=== PATIENT | male | born 1945 | race Caucasian/White ===

== ENCOUNTER → 2016-06-28 | Outpatient (CLI) | payer OTHER, MEDICARE ==
--- NOTE | 2016-06-28 09:59 | MR ---
MRI of the Brain (Without Contrast) at 0830 hours History: Paresthesias. Numbness left side.. Technique: MRI was performed of the brain using a 1.5 Cally MRI system. Sagittal and axial images wer e performed with standard imaging sequences. Findings: The ventricles, cisterns, and sulci are normal for the patient's age. No evidence for an e xtra-axial fluid collection. No evidence for mass effect or midline shift. Minimal periventricular wh ite matter change is seen which can be seen with aging and minimal small vessel ischemic disease. No evidence for intracranial mass, hemorrhage, or infarct. Diffusion-weighted images are normal. Posteri or fossa appears normal with a normal appearance to the craniocervical junction. Pituitary gland is n ormal in size. The major caliber vessels visualized are normal in appearance. Paranasal sinuses and m astoid air cells are clear. Impression: Normal MRI of the brain without contrast for age.
== END ==
LOC: FIMAGING 07:45
PROVIDERS: ATTEND Internal Medicine
DX: R20.2 Paresthesia of skin (principal)

== ENCOUNTER → 2017-04-28 | Outpatient (CLI) | payer OTHER, MEDICARE | LOC: FIMAGING 08:34 | PROVIDERS: ATTEND Internal Medicine | DX: M25.562 Pain in left knee (principal); M23.204 Derangement of unspecified medial meniscus due to old tear or injury, left knee; M76.892 Other specified enthesopathies of left lower limb, excluding foot; M22.42 Chondromalacia patellae, left knee; R60.9 Edema, unspecified ==

== ENCOUNTER 2017-07-06 11:06 | Observation (INO) | payer OTHER, MEDICARE ==
[2017-07-06] MEDS ORDERED: ONDANSETRON 4 MG/2 ML VIAL ONE (11:54)
[2017-07-06] MEDS ORDERED: ONDANSETRON 4 MG/2 ML VIAL IVP ONE (11:58)
[2017-07-06 12:01] LABS: PLATELET COUNT 177 10^3/uL (150-400)
--- NOTE | 2017-07-06 12:03 | CPEKG ---
Heart Rate: 52 RR Interval: 1154 P-R Interval: 168 QRSD Interval: 104 QT Interval: 452 QTC Interval: 421 P [place]: 82 QRS [place]: -21 T Wave [place]: 31 EKG Severity - ABNORMAL ECG - EKG Impression: SINUS RHYTHM EKG Impression: PROBABLE LEFT ATRIAL ABNORMALITY EKG Impression: INCOMPLETE RBBB AND LAFB EKG Impression: PROBABLE ANTEROSEPTAL INFARCT, OLD Electronically Signed By: Pineda Weathers 06-Jul-2017 12:08:57
--- NOTE | 2017-07-06 12:08 | EDPHY ---
H & P Time Seen by Provider: 07/06/17 11:18 HPI/ROS: CHIEF COMPLAINT: Neck pain HISTORY OF PRESENT ILLNESS: Patient presents with severe symptoms this morning. He had an episode 3 days ago which lasted 2 hr and resolved. He was at home and was doing some exercises for balance because of his left knee meniscus injury. Around 9:00 a.m. He had sudden onset of severe pain in his upper neck and bottom of his head which caused him to be lightheaded and have nausea and almost passed out. He started hyperventilating at tingling in his hands and his fingers. Symptoms lasted about half an hour and then got better. He describes also tingling in his left cheek during this episode but not on the right, and his describes slurred speech like he was"soft on the edges"with his speech which lasted for about 10 min. Currently does not have a headache. No visual symptoms. No trouble with balance or thought. REVIEW OF SYSTEMS: Eye: no change in vision ENT: no sore throat Cardiac: no chest pain or syncope Pulmonary: no cough or SOB Abdomen: no vomiting, diarrhea, abdominal pain Musculoskeletal: Upper neck and headache as described above, chronic left knee pain from meniscus injury unchanged Skin: no rash Neuro: HPI Constitutional: no fever : no urinary symptoms A comprehensive 10 point review of systems is otherwise negative aside from elements mentioned in the history of present illness. PAST MEDICAL HISTORY: Parathyroid and left knee meniscus Social history: No alcohol here with spouse General Appearance: Alert and conversant, cooperative. Eyes: No scleral icterus. Pupils equal reactive extraocular motion intact. ENT, Mouth: Normal mucous membranes. No tongue laceration or abrasion. Respiratory: Normal respiratory effort, breath sounds equal, lungs are clear to auscultation. Cardiovascular: Regular rate and rhythm. No carotid bruit. Gastrointestinal: Abdomen is soft and non tender. Neurological: Alert, face symmetric, normal motor and sensory in extremities. Strength 5/5 in deltoids, triceps, biceps, wrist extensor, intrinsics of both arms. [id number] normal bilaterally with no pronator drift. Speech is fluent. Face is intact to sensation with light touch in both sides of his cheeks. Skin: Warm and dry, no rashes. Musculoskeletal: No peripheral edema. No midline spinal tenderness. Psychiatric: Not agitated. Emergency Department course/MDM: Patient presents with multiple symptoms, differential broad and includes but not limited to spinal cord compression from disc, vascular dissection, subarachnoid, some type of stroke or intracranial bleed. CT imaging including vascular, labs. 1322: Normal head noncontrast and angiography per Dr. Selby. Results discussed, admission for TIA workup with the recommendation of Neurology consult discussed and consented. 1346: [place] for Mathew; will consider pursue MRI of the C-spine if TIA workup is negative. Smoking Status: Never smoked Constitutional: Initial Vital Signs Temperature (C) 36.3 C 07/06/17 11:08 Heart Rate 56 L 07/06/17 11:08 Respiratory Rate 16 07/06/17 11:08 Blood Pressure 134/69 H 07/06/17 11:08 O2 Sat (%) 100 07/06/17 11:08 O2 Delivery Mode Room Air Allergies/Adverse Reactions: prochlorperazine edisylate [From Compazine] Allergy (Verified 02/26/14 14:29) prochlorperazine maleate [From Compazine] Allergy (Verified 02/26/14 14:29) Home Medications: Medication Instructions Recorded Acid Improvement Auditor Complete (Equate) 1 tab PO BID PRN 07/06/17 Aspirin EC [Aspirin EC 81 mg (*)] 81 mg PO DAILY 07/06/17 Cholecalciferol Vit D3 [Vitamin D3 4,000 units PO DAILY 07/06/17 2000 units tab (OTC)] Fluticasone Nasal [Flonase Nasal 2 sprays NASAL DAILY 07/06/17 [place] (RX)] Ibuprofen [Motrin (*)] 200 mg PO Q6 PRN 07/06/17 LORazepam [Ativan (*)] 0.25 mg PO QID@06,08,1130,1630 07/06/17 Levothyroxine [Synthroid 75 mcg 75 mcg PO DAILY06 07/06/17 (*)] Multivitamins [Multivitamin (*)] 1 each PO DAILY 07/06/17 [place]-3 Fatty Acids [Fish Oil 1000 1,000 mg PO DAILY 07/06/17 mg (*)] Oxcarbazepine [Trileptal] 75 mg PO BID 07/06/17 Sodium Cl Nasal [[place] (*)] 1 spray [place] HS 07/06/17 Medical Decision Making - Diagnostics EKG Interpretation: 12-lead EKG interpreted by me; official reading is in trace master. My interpretation is sinus rhythm with incomplete right bundle branch and left anterior fascicular block, late anterior RS transition. Imaging Results: Imaging Impressions Head CT 07/06/17 12:13 Impression: Normal noncontrast CT of the brain. Results called to Dr. Pineda Weathers at the time of the interpretation. Head CTA 07/06/17 12:13 Impression: Negative CT angiography of the [place].. Neck CTA 07/06/17 12:13 Impression: Negative CT angiography of the neck.. Note: All stenoses are calculated using NASCET Criteria. Imaging: Discussed imaging studies w/ clinical training coordinator Radiologist, I viewed and interpreted images myself Differential Diagnosis: Differential considered including but not limited to spinal cord compression, cervical radiculopathy, TIA, subarachnoid, vascular dissection. Consult/Admit Bed Type: [facility] admit for TIA workup - Data Points Laboratory Results: Laboratory Results 07/06/17 11:50 07/06/17 11:50 07/06/17 07/06/17 07/06/17 11:50 11:50 11:50 WBC 6.67 10^3/uL 10^3/uL (3.80-9.50) RBC 5.02 10^6/uL 10^6/uL (4.40-6.38) Hgb 15.6 g/dL g/dL (13.7-17.5) Hct 44.9 % % (40.0-51.0) MCV 89.4 fL fL (81.5-99.8) MCH 31.1 pg pg (27.9-34.1) MCHC 34.7 g/dL g/dL (32.4-36.7) RDW 12.6 % % (11.5-15.2) Plt Count 177 10^3/uL 10^3/uL (150-400) MPV 9.9 fL fL (8.7-11.7) Neut % (Auto) 80.0 % H % (39.3-74.2) Lymph % (Auto) 10.9 % L % (15.0-45.0) [place] % (Auto) 7.6 % % (4.5-13.0) Eos % (Auto) 0.6 % % (0.6-7.6) Baso % (Auto) 0.6 % % (0.3-1.7) Nucleat RBC Rel Count 0.0 % % (0.0-0.2) Absolute Neuts (auto) 5.33 10^3/uL 10^3/uL (1.70-6.50) Absolute Lymphs (auto) 0.73 10^3/uL L 10^3/uL (1.00-3.00) Absolute Monos (auto) 0.51 10^3/uL 10^3/uL (0.30-0.80) Absolute Eos (auto) 0.04 10^3/uL 10^3/uL (0.03-0.40) Absolute Basos (auto) 0.04 10^3/uL 10^3/uL (0.02-0.10) Absolute Nucleated RBC 0.00 10^3/uL 10^3/uL (0-0.01) Immature Gran % 0.3 % % (0.0-1.1) Immature Gran # 0.02 10^3/uL 10^3/uL (0.00-0.10) PT 14.5 SEC SEC (12.0-15.0) INR 1.11 (0.83-1.16) Sodium 137 mEq/L mEq/L (135-145) Potassium 3.9 mEq/L mEq/L (3.5-5.2) Chloride 101 mEq/L mEq/L (97-110) Carbon Dioxide 27 mEq/l mEq/l (22-31) Anion Gap 9 mEq/L mEq/L (8-16) BUN 18 mg/dL mg/dL (7-23) Creatinine 1.1 mg/dL mg/dL (0.7-1.3) Estimated GFR > 60 Glucose 92 mg/dL mg/dL (70-100) Calcium 9.2 mg/dL mg/dL (8.5-10.4) Troponin I < 0.012 ng/mL ng/mL (0.000-0.034) Medications Given: Discontinued Medications Ondansetron HCl (Zofran) 4 mg IVP EDNOW ONE Stop: 07/06/17 11:59 Last Admin: 07/06/17 12:19 Dose: 4 mg Departure - Departure Disposition: [facility] Acute Clinical Impression: neck pain and headache Condition: Good
[2017-07-06 12:10] LABS: INR 1.11 (0.83-1.16); PROTIME(PATIENT) 14.5 SEC (12.0-15.0)
[2017-07-06] MEDS ORDERED: IOPAMIDOL (ISOVUE 370) 100 ML BTL IV ONE (12:24)
[2017-07-06] MEDS ORDERED: ONDANSETRON DISINTEGRATING 4 MG TAB PO PRN (14:01)
[2017-07-06] MEDS ORDERED: ONDANSETRON 4 MG/2 ML VIAL IVP PRN (14:01)
[2017-07-06] MEDS ORDERED: ACETAMINOPHEN 325 MG TAB PO PRN (14:01)
[2017-07-06] MEDS ORDERED: IBUPROFEN 200 MG TAB PO PRN (14:56)
[2017-07-06] MEDS ORDERED: [UNRECOGNIZED DRUG - OTHER] PO PRN (14:56)
--- NOTE | 2017-07-06 15:43 | GHP ---
[f rep st] HISTORY AND PHYSICAL DATE OF ADMISSION: 07/06/2017 HISTORY OF PRESENT ILLNESS: The patient is a pleasant 72-year-old gentleman with a history of anxiet y, hypothyroidism, hyperparathyroidism who presents with an episode of dizziness. It sounds like he had been doing some exercises for a meniscal tear in his knee. He was shaving this morning. He felt lightheaded and dizzy. He had tingling in both his hands and tingling on his cheek. His yocasta beyer what is possibly slurred speech saying "his words are softer around the edges." When I speak with the patient, his speech appears normal to who is at the bedside. The patient denies previous episodes of blacking out, but he did have similar episodes that were mild er in nature this week where he would be shaving. He would feel lightheaded, dizziness and tingling in his arms. Also with this episode today he had some occipital pain. He did not have visual distur bances. He does not have a headache. He did not have weakness in 1 hand or the other although he andrade d bilateral tingling. He notes he has been riding an exercise bike, but he is pretty much sitting upright. He has had no n ausea, vomiting, diarrhea. He is bradycardic at rest, but has never been evaluated for a pacer. He did have bradycardia on a Holter monitor after using atenolol. He also has a history of mitral valve prolapse. In the emergency department the patient is feeling fairly well. REVIEW OF SYSTEMS: A complete 10-point review of systems was conducted, negative except as noted in the HPI. PAST MEDICAL HISTORY: 1. Mitral valve prolapse. 2. Recent meniscal tear. 3. Hypercalcemia secondary to hyperparathyroidism status post parathyroidectomy. ALLERGIES: Prochlorperazine. HOME MEDICATIONS: 1. An acid tree sapper complete called Equate. It sounds like an [id number]-fcnpxev. 2. Fish oil. 3. Ibuprofen. 4. Aspirin. 5. Oxcarbazepine. 6. Levothyroxine. 7. Flonase. 8. Lorazepam 0.25 mg 4 times daily. 9. Sodium chloride. 10. Vitamin D3 and multivitamin. SOCIAL HISTORY: Retired from [employer]. Originally from [place]. Nonsmoker. Rare alcohol. FAMILY HISTORY: Father sounds like had obesity and heart disease. PHYSICAL EXAMINATION: VITAL SIGNS: Temperature 36.3, blood pressure 134/69, pulse 56, breathing 16 times a minute, 100% on room air. GENERAL: No acute distress. HEENT: Sclerae anicteric. Orophary nx clear. Mucous membranes moist. NECK: Supple. No lymphadenopathy or JVD. LUNGS: Clear to ausc ultation bilaterally. HEART: S1, S2. ABDOMEN: Soft, nontender, nondistended. LOWER EXTREMITIES: Without edema. Calves nontender. SKIN: Without rash. NEUROLOGIC: Exam is nonfocal. LABORATORY: CBC is normal. Troponin less than 0.012. Coags normal. White count 6.7, hematocrit 45 , platelets are 177,000. EKG interpreted by me shows sinus bradycardia at 52 with borderline left axis deviation, no ST or T-w ave changes. No prior for comparison. CT of the head and neck shows no evidence of vascular disease. Normal [place] of [place]. No evidence of carotid disease. Noncontrast head CT shows no acute bleed. Normal noncontrast CT of the brain. I discussed the case Dr. Pineda Weathers. ASSESSMENT/PLAN: A 72-year-old gentleman presents with some presyncopal symptoms as well as some tin gling and occipital pain and slurred speech. 1. Question transient ischemic attack. I do not think this represents a neurovascular event, given his absence of any significant vascular disease on CTA of head and neck. However, cannot rule out gi jeana his left-sided facial tingling and slurred speech. This does look somewhat lateralized to his [facility] brain, so will perform an MRI of his brain and an echocardiogram, lipid panel etc., complete the stroke workup. 2. Episodes of lightheadedness. I think this is concerning for possible bradycardic event versus va sovagal. I did push on his carotid bulbs bilaterally without presyncope or bradycardia. It is possi alina a carotid bulb hypersensitivity as these things have occurred while he is shaving. Will follow h im on a heart monitor overnight. 3. Anxiety. Continue his Ativan. 4. Hyperparathyroidism. His calcium is normal here today. 5. Disposition. Observation status. /[id number]/MODL
[2017-07-06] MEDS: LORazepam 0.5 MG TAB PO SCH (17:04)
[2017-07-06] MEDS ORDERED: SODIUM CL NASAL 45 ML BTL EACHNARE SCH (21:00)
[2017-07-06] MEDS ORDERED: OXCARBAZEPINE PO SCH (21:00)
[2017-07-07] MEDS: OXCARBAZEPINE PO SCH ×2 (00:05→09:39)
[2017-07-07 05:22] LABS: PLATELET COUNT 187 10^3/uL (150-400)
[2017-07-07] MEDS: LORazepam 0.5 MG TAB PO SCH ×2 (05:31→07:53)
[2017-07-07] MEDS ORDERED: LEVOTHYROXINE 75 MCG TAB PO SCH (06:00)
[2017-07-07 08:52] VITALS: BP 102/62; PULSE 65; RESP 13; TEMP 97.4; O2SAT 97
[2017-07-07] MEDS ORDERED: CHOLECALCIFEROL VIT D3 2,000 UNITS TAB/CAP PO SCH (09:00)
[2017-07-07] MEDS ORDERED: OMEGA-3 FATTY ACIDS 1,000 MG CAP PO SCH (09:00)
[2017-07-07] MEDS ORDERED: ASPIRIN EC 81 MG TAB PO SCH (09:00)
[2017-07-07] MEDS ORDERED: FLUTICASONE NASAL 120 SPRAYS/16 GM MDI NS SCH (09:00)
[2017-07-07] MEDS ORDERED: ASPIRIN 81 MG CHEWABLE TAB PO SCH (09:00)
[2017-07-07] MEDS ORDERED: MULTIVITAMINS 1 EACH TAB PO SCH (09:00)
--- NOTE | 2017-07-07 09:50 | GCON ---
[f rep st] CONSULTATION NEUROLOGIC CONSULTATION REFERRING PHYSICIAN: Leif Carmona MD HISTORY: The patient is a 72-year-old gentleman who I am asked to see in neurologic consultation reg arding some events over the last few days, involving pain in the neck and some paresthesias in the andrade nds, as well as perhaps some mild slurring of speech. The history is obtained from review of the [facility] records as well as discussions with the patient directly, who is a good historian, and his . He has a history starting Saturday of having some abnormal feelings that he says were often precip itated by some pain in his neck and even having some trouble holding his head up. He had a little bi t of similar phenomenon Saturday and then yesterday came to the hospital at the recommendation of Dr. Venkat gibson for assessment to do some more workup because of the ongoing symptoms to include the neck pain and the paresthesias he would temporarily experience in his hands. At times, it was almost as i f he was feeling that he might pass out but never did. His said he was leaning forward, had a h noé time lifting his head up 1 time. These other episodes were tending to occur when he was shaving. He has not had these specific symptoms before, but he has had problems with peripheral neuropathy o [place] the last year. He said it came on after he had parathyroid surgery. He describes a numbness in his distal lower extremities, which is nonpainful. He has also had acute pain in the left ear and we nt through evaluation with Dr. Goel in Neurology, and apparently was felt to have a neuralgia for which he has been given Epitol, and more recently ox carbamazepine. He is finding that a little hard to tolerate right now and is taking a small dosage. He was also seen by Dr. Coker for peripheral neuropathy and apparently EMG was performed showing some evidence of neuropathy, although I do not h ave that report. He had picked up on some tremulousness and perhaps some parkinsonism and referred t he to Dr. Goel the best I can understand and he felt he probably did not have Parkinson disease, b ut likely some central tremor or a relatively benign tremor that was evident. The patient has never had a classic resting tremor. Sometimes he is mildly tremulous in his hands. His does not feel that his voice has significantly changed, but he has always been a soft-spoken and deliberate speake r. He has not had major changes in his walking, but he does have a tendency to lean forward with his head and neck with a kyphotic posture. This was also seen with the physical therapist working with him today, but she did not pick up man on anything more specific either. Her initial reaction was the sa me as mine that he might appear little bit parkinsonian with a decreased facial expression and slowne ss of speech, but did not have other classic features evident on her examinations. In any case, since coming in the hospital he has been stable. He has some baseline mild bradycardia, but that apparently is not a new phenomenon and no specific arrhythmias have been seen so far. He h as not had recurrent symptoms since admission. He has undergone CT head showing nothing specific, CT angiogram of the head and neck without any sign ificant stenoses. Cervical spine MRI shows variable degrees of central and foraminal stenoses, with some of the most prominent change seen at the C4-5 level. There is also narrowing at C5-C6. C6-C7 h as central canal stenosis as well. No abnormal cord signal. He had brain MRI obtained which looks r elatively unremarkable. He had minimal white matter change. No significant atrophy. LABORATORY STUDIES: Have shown a normal cell count, INR, and chemistry looks good with LDL cholester ol of 75. FAMILY HISTORY: Noncontributory. SOCIAL HISTORY: He does not smoke and no alcohol abuse. He is retired from working at [employer] for many years. MEDICATIONS ON ADMISSION: Include vitamin D, lorazepam 0.25 mg 4 times a day, Flonase, Synthroid, ox carbazepine 75 mg twice a day, aspirin 81 mg daily, ibuprofen as needed. He has not received the oxc arbazepine during admission because it has not been available formulary. ALLERGIES: Prochlorperazine. REVIEW OF SYSTEMS: No recent weight loss or weight gain. No chest pain, palpitations, or shortness of breath. No fever, chills, nausea, vomiting, or diarrhea. The other 10-point review of systems completed and unremarkable except for that noted above. PHYSICAL EXAM: VITAL SIGNS: Blood pressure 102/62, pulse of 65 and has been typically in the 50s. Temperature of 36.3. Respirations 13. GENERAL: He is well developed, in no acute distress. NECK: Supple with no bruits or masses. He does have a tendency to a kyphotic posture in the upper spine. No significant pain with head movement. CARDIAC: Regular rate and rhythm. No murmur. NEUROLOGIC: He is awake, alert and attentive. He does have mild generalized bradykinesia and some decreased fa cial expression and speaks softly and deliberately, but I do not detect anything else more specific f rom a parkinsonism standpoint. I did think there might even be a little bit of cogwheeling in the formerly [facility] upper extremity. His pupils are 2 mm and reactive. Extraocular movements are intact. Normal fa cial sensation and strength. Palate elevates symmetrically. Tongue protrudes in the midline. His h earing is diminished bilateral because he is not wearing his hearing aids. The motor exam suggests a little bit of bradykinesia, but there is nothing asymmetric. No resting tremor. He has a minimal f ine postural tremor that is also evident on mmkghf-go-bgev and perhaps a little more on the right ana n the left. As mentioned above, there is a little bit of cogwheeling on testing the tone in the righ t upper extremity more than the left, and some of this seems to also reflect trouble relaxing the arm s when I am testing. Rapid alternating movements are not particularly slow or decreased in amplitude . The actual muscle power is fairly well preserved throughout. Sensation is intact in the upper ext remities, but some distal decrease in the lower extremities. He can ambulate independently and has r easonable arm swing, though his posture tends to be leaning forward. He does not shuffle his feet. Reflexes 2+ except for absent at the ankles. IMPRESSION: Overall, I do not think the patient probably has been experiencing transient ischemic at tack. Although that is in the differential consideration, the description sounds less like that and more in keeping with perhaps cervical spine disease causing some of the pain and paresthesias, and ev en possible vasovagal phenomena with some of these symptoms being predominantly when he is standing u p and shaving. The description does not sound like a vertebrobasilar syndrome very likely. His CT a ngiogram of the head and neck show no significant stenoses. He has an echocardiogram pending, which is also still reasonable. He has chronic bradycardia, but no specific evidence of arrhythmia or need for pacemaker at this point. I would suggest continuing to monitor his cardiac status to make sure he does not have any problems develop in that respect. Dr. Carmona had similar feelings. Interestingly, he does have a mild degree of parkinsonism, but quite nonspecific and a lot of this ma y simply be his baseline when it comes to his demeanor with facial expression and slow, soft, deliber ate speech, that his says isn't really dramatically different in her opinion. Even a kyphotic p osture itself is not very specific. This may reflect the cervical spine disease more than any neuro degenerative process, but this should also be monitored as is already being done through Dr. Chicho miramontes and Dr. Goel. He has a history of otalgia on the left, for which he is getting ox carbamazepine. He is also known to have peripheral neuropathy, which seems to be stable but could contribute to problems if that prog resses. This seems very nonspecific. At this point, I think he can continue on antiplatelet therapy. I do not think he needs statin thera py given the lack of clinical diagnosis of transient ischemic attack. He already has a very good LDL . I think it would be productive for him to go to follow up with Dr. Coker regarding some of the cervical spine disease and perhaps helping with the pain. He will continue to follow up with Dr. Lowell duran for neurologic issues and I will be available if any further questions arise. TOTAL UNIT TIME: 70 minutes. Copy requested to: MD Dr. Amando Shelton /[id number]/MODL
--- NOTE | 2017-07-07 10:46 | ECHO ---
[email or web address] [address] [address] Main: [phone] Fax: Transthoracic Echocardiogram Name: ASIA MELENDEZ MR#: [id number] Study Date: 07/07/2017 Study Time: 09:05 AM Date of : 1945 Age: 72 year(s) Height: 188 cm (74 in.) Weight: 79.83 kg (176 lb.) BSA: 2.06 m2 Gender: Male Examination: Echo Indication: ischemic stroke w/out TPA Image Quality: Adequate Contrast: Requested by: Leif Carmona BP: 102 mmHg/62 mmHg Heart Rate: 59 bpm Rhythm: Normal sinus rhythm Indication: ischemic stroke w/out TPA Procedure Staff Platform Loader: Jenny Horta [facility] Reading Physician: Lidia Watkins Requesting Provider: Conclusions: Normal size left ventricle. No LV hypertrophy. Normal global systolic LV function. EF is 64 %. No regional wall motion abnormality. Mildly dilated right ventricle. Low normal RV function. The right atrium is mildly dilated. There is mild bileaflet mitral valve prolapse. Trivial mitral valve regurgitation. The pulmonary artery pressure is mildly increased. Right ventricular systolic pressure measures 41mmHg. Moderate to severe tricuspid valve regurgitation. No prior echo No obvious cardiac source of embolism; LATRELL is more sensitive to detect cardioembolic source Measurements: Chambers Valvular Assessment AV/MV Valvular Assessment TV/PV Normal Normal Normal Name Value Range Name Value Range Name Value Range Ao Sydnee (MM): 3.2 cm (2.2 cm-3.7 AV Vmax: 0.98 m/s (1 m/s-1.7 TR Vmax: 3.00 mm/s ( - ) cm) m/s) TR PGmax: 36 mmHg ( - ) IVSd (2D): 0.9 cm (0.6 cm-1.1 AV maxP mmHg ( - ) syst. PAP: 41 mmHg ( - ) cm) LVOT Vmax: 0.86 m/s (0.7 m/s-1.1 PV Vmax: 0.75 m/s (0.6 m/s-0.9 LVDd (2D): 4.3 cm (4.2 cm-5.9 m/s) m/s) cm) MV E Vmax: 0.51 m/s ( - ) PV PGmax: 2 mmHg ( - ) LVDs (2D): 2.7 cm (2.1 cm-4 MV A Vmax: 0.42 m/s ( - ) cm) MV E/A: 1.21 ( - ) LVPWd (2D): 1.0 cm (0.6 cm-1 cm) Patient: ASIA MELENDEZ Study Date: 07/07/2017 Page 1 of 2 09:05 AM LVEF (BP): 64 % (>=55 %) RVDd(2D): 4.0 cm (1.9 cm-3.8 cmmm) Continued Measurements: Chambers Valvular Assessment AV/MV Valvular Assessment TV/PV Name Value Name Value Name Value LADs: 3.6 cm MV DecTime: 324 m/s CVP (est.): 5 mmHg LADs Lon.7 cm MV E/E' Septal: 6.80 LA Area: 19.8 cm2 MV E/E' Lateral: 4.60 LA Volume: 52 ml LA Volume Index: 25.2 ml/m2 TAPSE: 1.9 cm RA Area: 20.6 cm2 Additional Vessels Name Value Ao Ascendin.2 cm Findings: Left Ventricle: Normal size left ventricle. No LV hypertrophy. Normal global systolic LV function. EF is 64 %. No regional wall motion abnormality. Right Ventricle: Mildly dilated right ventricle. Low normal RV function. Left Atrium: The left atrium is normal in size. Right Atrium: The right atrium is mildly dilated. Mitral Valve: The mitral valve is normal in appearance. There is mild bileaflet mitral valve prolapse.Trivial mitral valve regurgitation. No mitral stenosis is present. Aortic Valve: The aortic valve is normal in appearance and function. There is mild thickening of the aortic cusps. There is no aortic valve regurgitation. No aortic valve stenosis is present. Tricuspid Valve: The tricuspid valve is normal in appearance and function. The pulmonary artery pressure is mildly increased. Right ventricular systolic pressure measures 41mmHg. Moderate to severe tricuspid valve regurgitation. Pulmonic Valve: The pulmonic valve is normal in appearance and function. There is no pulmonic regurgitation seen. Aorta: The aorta is normal. Normal size aortic root measuring 3.2 cm. Normal size ascending aorta measuring 3.2 cm. Pericardium: No pericardial effusion. (No Signature Object) Patient: ASIA MELENDEZ Study Date: 07/07/2017 Page 2 of 2 09:05 AM [id number]
--- NOTE | 2017-07-07 11:16 | HOSPPROG ---
Hospitalist Progress Note Assessment/Plan: 72 yo M w neck pain neg tia eval c spine mri reviewed w dr da silva see dc summary Subjective: sx resolved. no events tele. case d/w dr da silva Objective: Vital Signs Temp Pulse Resp BP Pulse Ox 36.3 C 65 13 102/62 97 07/07/17 08:00 07/07/17 08:00 07/07/17 08:00 07/07/17 08:00 07/07/17 08:00 Laboratory Results 07/07/17 05:02 07/07/17 05:02 07/06/17 07/07/17 07/08/17 05:59 05:59 05:59 Intake Total 700 Balance 700 PT 14.5 SEC (12.0-15.0) 07/06/17 11:50 INR 1.11 (0.83-1.16) 07/06/17 11:50 - Physical Exam Constitutional: no apparent distress, appears nourished Eyes: PERRL, anicteric sclera Ears, Nose, Mouth, Throat: moist mucous membranes, hearing normal Cardiovascular: regular rate and rhythym, no murmur, rub, or gallop Respiratory: no respiratory distress, no rales or rhonchi Gastrointestinal: normoactive bowel sounds, soft, non-tender abdomen Genitourinary: no bladder fullness Skin: warm, normal color Musculoskeletal: full muscle strength Neurologic: AAOx3
--- NOTE | 2017-07-07 11:45 | GDS ---
[f rep st] DISCHARGE SUMMARY DISCHARGE DIAGNOSES: 1. Occipital pain. 2. Lightheadedness. Please see admission history and physical by Dr. Leif Carmona. The patient presented with a comple x of symptoms including occipital pain with bilateral numbed tingling in his hands, as well as presyn cope. His workup included a negative head CT and negative CTA of his head and neck, which showed ess entially no vascular disease. He had overnight telemetry showing bradycardia in the 50s, but no paus es and no heart rates in the 20s. He had a brain MRI that was normal. He was seen by Neurology, who felt this was unlikely to be a TIA. A C-spine MRI showed no disk herniation. There were mild diffu se disk bulges at C5-C6 and C6-C7. There was some discussion of a cystic lesion at C4-C5. This is r eviewed by Neurology, who did not think this represented something that needed further evaluation. H e had an unremarkable echocardiogram. The patient is discharged home with an unchanged medication re gimen. He was seen by PT, who actually thought his symptoms were muscle strain. He has been doing s ome new exercises, and I think he probably strained his neck muscles. /[id number]/MODL
== END 2017-07-07 12:05 | disposition home or self-care (01) ==
LOC: INTOOBSV 13:46 → F3N 15:00
PROVIDERS: ADMIT Internal Medicine; ATTEND Internal Medicine
DX: R51 Headache (principal); R42 Dizziness and giddiness; R00.1 Bradycardia, unspecified; G20 Parkinson's disease; M50.822 Other cervical disc disorders at C5-C6 level; M50.823 Other cervical disc disorders at C6-C7 level; M25.562 Pain in left knee; E03.9 Hypothyroidism, unspecified; E21.3 Hyperparathyroidism, unspecified; F41.8 Other specified anxiety disorders
CPT/HCPCS: 70450; 70496; 70498; 70551; 72141; 93005; 93306; 97110; 97161; 97165; G0378; G8978; G8979; G8980; G8987; G8988; G8989; J2405; Q9967; 96374

== ENCOUNTER → 2018-08-18 | Outpatient (CLI) | payer OTHER, MEDICARE | LOC: BHFA 16:00 | PROVIDERS: ATTEND Internal Medicine Interventional Cardiology | DX: R00.2 Palpitations (principal) ==

== ENCOUNTER → 2018-09-18 | Outpatient (CLI) | payer OTHER, MEDICARE | LOC: BHFA 10:45 | PROVIDERS: ATTEND Internal Medicine Cardiovascular Disease | DX: R07.9 Chest pain, unspecified (principal); R06.02 Shortness of breath; I49.3 Ventricular premature depolarization ==

== ENCOUNTER → 2018-09-22 | Outpatient (CLI) | payer OTHER, MEDICARE | LOC: BHFA 13:30 | PROVIDERS: ATTEND Internal Medicine Cardiovascular Disease | DX: R94.39 Abnormal result of other cardiovascular function study (principal); R94.31 Abnormal electrocardiogram [ECG] [EKG] | CPT/HCPCS: 78452; 93017; A9500 ==